=== PATIENT | male | born 1985 | race Caucasian/White ===

== ENCOUNTER 2019-03-01 17:49 | Emergency (ER) | payer MEDICAID ==
[~2019-03-01] VITALS: Ht 188 cm; Wt 102.7 kg
[2019-03-01 17:51] VITALS: BP 134/87
[2019-03-01] MEDS ORDERED: HYDROcodone/acetaminophen 10/325mg tab PO ONE (19:50)
[2019-03-01] MEDS ORDERED: IBUP-1984 PO (20:30)
[2019-03-01] MEDS ORDERED: HYDR-4383 PO (20:38)
== END 2019-03-01 20:48 | disposition home or self-care (01) ==
LOC: ER 17:49
DX: S42.021A Displaced fracture of shaft of right clavicle, initial encounter for closed fracture (principal); V00.311A Fall from snowboard, initial encounter; Y93.23 Activity, snow (alpine) (downhill) skiing, snowboarding, sledding, tobogganing and snow tubing; Y92.89 Other specified places as the place of occurrence of the external cause; Y99.9 Unspecified external cause status
CPT/HCPCS: 73030; 99284